=== PATIENT | male | born 1985 ===

== ENCOUNTER 2016-07-04 18:10 | Emergency (ER) | payer OTHER ==
[2016-07-04 19:13] VITALS: BP 122/71
--- NOTE | 2016-07-04 19:46 | RAD ---
INDICATION: Left shoulder pain COMPARISON: None TECHNIQUE: Routine frontal and Y views were obtained. FINDINGS: The bony structures, joint spaces, and soft tissues are normal for age. IMPRESSION: NEGATIVE EXAMINATION
--- NOTE | 2016-07-04 20:12 | UC ---
Shoulder Pain HPI - HPI Summary HPI Summary: 31 year old male with complaints of pain in left shoulder. States he hit a ski jump last evening and fell directly onto his left shoulder. He has had pain and limited ROM since the fall. Right hand dominant Denies neck or back pain Denies difficulty breathing. Pain / - History of Current Complaint Chief Complaint: UCUpperExtremity Stated Complaint: LEFT SHOULDER INJURY Time Seen by Provider: 07/04/16 20:01 Hx Obtained From: Patient Onset/Duration: Sudden Onset, Lasting Days - 1, Still Present Severity Initially: Severe Severity Currently: Moderate Location Of Pain: Is Discrete @ - AC left shoulder Pain Scale Used: 0-10 Numeric - 9 Character: Dull, Aching Aggravating Factor(s): External Rotation, Abduction - >90 Alleviating Factor(s): Rest, Ice Associated Signs And Symptoms: Positive: Negative Related History: Dominant Hand Right - Risk Factors Non-Orthopedic Risk Factor: Negative DVT Risk Factors: Negative Septic Arthritis Risk Factor: Negative - Allergies/Home Medications Allergies/Adverse Reactions: Allergies Allergy/AdvReac Type Severity Reaction Status Date / Time No Known Allergies Allergy Verified 10/20/14 09:35 PMH/Surg Hx/FS Hx/Imm Hx Previously Healthy: Yes Endocrine History Of: Denies: Diabetes Cardiovascular History Of: Denies: Cardiac Disorders Respiratory History Of: Denies: Asthma - Surgical History Surgical History: None - Family History Known Family History: Negative: Hypertension, Diabetes - Social History Occupation: Employed Full-time Lives: With Family Alcohol Use: None Substance Use Type: None Smoking Status (MU): Current Every Day Smoker Type: Cigarettes Amount Used/How Often: 1 ppd Cessation Counseling: Patient Advised to Stop Review of Systems Constitutional: Negative Skin: Negative Eyes: Negative ENT: Negative Respiratory: Negative Cardiovascular: Negative Gastrointestinal: Negative Genitourinary: Negative Motor: Decreased ROM - left shoulder Musculoskeletal: Arthralgia - left shoulder Neurological: Negative Psychological: Negative All Other Systems Reviewed And Are Negative: Yes Physical Exam Triage Information Reviewed: Yes Appearance: Well-Appearing, Well-Nourished, Pain Distress - holding left elbow at his side Vital Signs: Initial Vital Signs Temp 98.9 F 07/04/16 19:09 Pulse 83 07/04/16 19:09 Resp 16 07/04/16 19:09 BP 122/71 07/04/16 19:09 Pulse Ox 100 07/04/16 19:09 Vital Signs Reviewed: Yes Eyes: Positive: Conjunctiva Clear. Negative: Discharge ENT: Positive: Hearing grossly normal. Negative: Nasal congestion Neck: Positive: Supple, Nontender - no midline cervical tenderness, No Lymphadenopathy Respiratory: Positive: Lungs clear, Normal breath sounds Cardiovascular: Positive: RRR, No Murmur Musculoskeletal: Positive: Strength Intact - 5/5 equal hand dietary service aide, No Edema, ROM Limited @ - at left shoulder greater than 90 degrees. No obvious deformity. Good sensation to light touch throughout the left upper extremity. good radial and ulnar pulses Neurological: Positive: Alert, Muscle Tone Normal Psychological: Positive: Age Appropriate Behavior - pleasant and cooperative. Negative: Abnormal Response To Family Skin: Negative: rashes, breakdown Shoulder Course/Dx - Course Course Of Treatment: Shoulder xray - negative. Education about shoulder sling. Pain medication. Follow up plan with orthopedist - Differential Dx/Diagnosis Differential Diagnosis/HQI/PQRI: Contusion Provider Diagnoses: Contusion left shoulder Discharge - Discharge Plan Condition: Stable Disposition: HOME Patient Education Materials: Shoulder Pain (ED), How to Use a Sling (GEN), Hydrocodone/Acetaminophen (By mouth) Referrals: Choco Bettencourt MD [Medical Doctor] - 2 Days
[2016-07-04] MEDS ORDERED: HYDROcodone/ACETAMIN 5-325 MG* 1 TAB PO ONE (20:20)
== END 2016-07-04 20:43 | disposition home or self-care (01) ==
LOC: UCCORT 18:10
DX: S40.012A Contusion of left shoulder, initial encounter (principal); V00.321A Fall from snow-skis, initial encounter; Y93.23 Activity, snow (alpine) (downhill) skiing, snowboarding, sledding, tobogganing and snow tubing; Y92.9 Unspecified place or not applicable; F17.210 Nicotine dependence, cigarettes, uncomplicated
CPT/HCPCS: 99213; G0463